=== PATIENT | female | born 1960 | race African-American/Black ===

== ENCOUNTER 2021-09-25 17:34 | Emergency (ER) | payer BC ==
[~2021-09-25] VITALS: Ht 162.6 cm; Wt 93.2 kg
[~2021-09-25 17:34] MED LIST: BACTRIM DS1 TAB OR; BENADRYL ALL OR; FERROUS SULF325 M1 OR; LORTAB 5 OR; MEDDOSEPAK OR; MEDROXYPR AC5 MG OR; PROVERA10 MG OR; [UNRECOGNIZED DRUG - OTHER]
[2021-09-25] MEDS ORDERED: ZPAK PO (21:38)
[2021-09-25 21:47] VITALS: BP 160/72
== END 2021-09-25 21:58 | disposition home or self-care (01) | DRG 179 ==
LOC: ED 17:34
DX: U07.1 COVID-19 (principal)

== ENCOUNTER 2022-05-04 16:28 | Emergency (ER) | payer OTHER, BC ==
[~2022-05-04] VITALS: Ht 162.6 cm; Wt 93.2 kg
[~2022-05-04 16:28] MED LIST changes: +ZPAK PO
[2022-05-04] MEDS ORDERED: CYCLOBENZAPRINE10 MG PO (16:40)
[2022-05-04] MEDS ORDERED: EC-NAPROXEN500 MG PO (16:40)
[2022-05-04 16:46] VITALS: BP 163/65
[2022-05-04 16:49] VITALS: BP 163/65
== END 2022-05-04 16:58 | disposition home or self-care (01) | DRG 552 ==
LOC: ED 16:28
DX: M54.9 Dorsalgia, unspecified (principal); I10 Essential (primary) hypertension; V49.40XA Driver injured in collision with unspecified motor vehicles in traffic accident, initial encounter

== ENCOUNTER 2022-09-21 15:29 | Emergency (ER) | payer SELFPAY ==
[~2022-09-21] VITALS: Ht 162.6 cm; Wt 94.0 kg
[~2022-09-21 15:29] MED LIST changes: +CYCLOBENZAPRINE10 MG PO; +EC-NAPROXEN500 MG PO
[2022-09-21 15:39] VITALS: BP 153/64
[2022-09-21 15:47] VITALS: BP 153/64
[2022-09-21 16:32] VITALS: BP 149/64
== END 2022-09-21 17:25 | disposition home or self-care (01) | DRG 605 ==
LOC: ED 15:29
DX: S80.02XA Contusion of left knee, initial encounter (principal); S80.01XA Contusion of right knee, initial encounter; S90.32XA Contusion of left foot, initial encounter; W01.0XXA Fall on same level from slipping, tripping and stumbling without subsequent striking against object, initial encounter

== ENCOUNTER 2024-06-15 09:23 | Emergency (ER) | payer MEDICARE ==
[~2024-06-15] VITALS: Ht 162.6 cm; Wt 92.9 kg
[2024-06-15 09:45] VITALS: BP 167/67
[2024-06-15] MEDS ORDERED: KETOROLAC TROMETHAMINE 30 MG/ML SDV IM ONE (09:55)
[2024-06-15] MEDS ORDERED: METHOCARBAMOL 500 MG/TAB PO ONE (09:55)
[2024-06-15 10:00] VITALS: BP 160/73
[2024-06-15 10:16] VITALS: BP 155/76
[2024-06-15] MEDS ORDERED: TRAMADOL HYDROC50 M1 PO (10:30)
[2024-06-15] MEDS ORDERED: NAPROXEN500 MG PO (10:30)
[2024-06-15] MEDS ORDERED: FLEXERIL5 M1 PO (10:30)
[2024-06-15 10:54] VITALS: BP 155/76
== END 2024-06-15 10:55 | disposition home or self-care (01) ==
LOC: ED 09:23
DX: M54.50 Low back pain, unspecified (principal)